=== PATIENT | male | born 1955 | race Caucasian/White ===

== ENCOUNTER 2017-09-13 11:23 | Day surgery (SDC) | END 2017-09-13 16:49 | disposition home or self-care (01) ==

== ENCOUNTER 2017-11-01 14:34 | Outpatient (CLI) | END 2017-11-01 15:45 | disposition home or self-care (01) ==

== ENCOUNTER 2018-12-29 05:45 | Day surgery (SDC) | payer OTHER ==
[2018-12-27 12:50] VITALS: BMI 25.1
[~2018-12-29] VITALS: Ht 170.2 cm; Wt 73.6 kg
[2018-12-29] VITALS (23 sets, daily range): BP systolic 111–142; BP diastolic 72–87; PULSE 52–158; RESP 11–23; Ht 170.2 cm; Wt 73.6 kg
[~2018-12-29 05:45] MED LIST: ATOR20TA38 PO; FLUT1BLS3 IH; [UNRECOGNIZED DRUG - OTHER]
[2018-12-29] MEDS ORDERED: BACITRACIN/POLYMYXIN 28.35 GM OINT TOP ONE (06:53)
[2018-12-29] MEDS ORDERED: BUPIVACAINE 0.5%/EPI (SDV) 10 ML INJ ONE (06:53)
[2018-12-29] MEDS ORDERED: BUPIVACAINE 0.5% (SDV) 30 ML INJ ONE (06:54)
[2018-12-29] MEDS ORDERED: ROCURONIUM 50 MG INJ ONE (07:00)
[2018-12-29] MEDS ORDERED: SEVOFLURANE 15 MIN ONE (07:00)
[2018-12-29] MEDS ORDERED: PROPOFOL 200 MG INJ ONE (07:00)
[2018-12-29] MEDS ORDERED: LIDOCAINE 2% (SDV) 5 ML INJ ONE (07:00)
[2018-12-29] MEDS ORDERED: MIDAZOLAM 1 MG/ML 2 ML INJ ONE (07:08)
[2018-12-29] MEDS ORDERED: FENTAnyl 50 MCG/ML VIAL ONE (07:08)
--- NOTE | 2018-12-29 07:22 | PREAC ---
Date/Time of Note Date/Time of Note DATE: 12/29/18 TIME: : Anesthesia Eval and Record Evaluation Time Pre-Procedure Interview DATE: 12/29/18 TIME: :19 Age 63 Sex male NPO: 8 hrs Preoperative diagnosis Bilateral hydrocele Planned procedure Bilateral hydrocelectomy Past Medical History Past Medical History: Includes Cardio: HTN Pulm: Smoking Hx, COPD Renal: CKD Infection(s): Hep C, Other (S/p Sovaldi, undetectable level) Surgery & Anesthesia Issues No known issue Meds Anticoagulation: No Beta Amaris within 24 hr: No Reason Beta Amaris not given: Pt. not on B-Amaris Reported Medications [onoro] No Conflict Check, 2 PUFFS DAILY 12/27/18 Atorvastatin Calcium* (Atorvastatin Calcium*) 20 Mg Tablet, 20 MG PO QHS, #30 TAB 12/27/18 Fluticasone/Umeclidin/Vilanter (Trelegy Ellipta 100-62.5-25) 1 Each Blst.w.dev, 1 EACH IH Q6 for SHORTNESS OF BREATH 11/01/17 Meds reviewed: Yes Allergies Coded Allergies: No Known Allergy (Unverified , 09/13/17) Allergies Reviewed: Yes Labs/Studies Labs Reviewed: Reviewed by anesthesiologist test: N/A Studies: ECG, CXR Pre-procedure Exam Last vitals Vital Signs Date Temp Pulse Resp B/P (MAP) Pulse Ox O2 O2 Flow FiO2 Time Delivery Rate 12/29/18 98.2 122 23 119/72 97 Room Air 06:42 (88) Airway: Adequate mouth opening, Adequate thyromental dist Mallampati: Mallampati I Teeth: Normal Lung: Normal Heart: Normal ASA Physical Status ASA physical status: 3 Emergency: None Planned Anesthetic General/MAC: ETT Pre-operative Attestations Prior to commencing anesthesia and surgery, the patient was re-evaluated, there was verification of: *The patient's identity *The results of appropriate recent lab work and preoperative vital signs *The above evaluation not changing prior to induction *Anesthetic plan, risk benefits, alternative and complications discussed with patient/family; questions answered; patient/family understands, accepts and wishes to proceed. ANKUSH LEON MD Dec 29, 2018 07:22
[2018-12-29] MEDS ORDERED: DEXAMETHASONE 4 MG/ML 5 ML INJ ONE (07:45)
[2018-12-29] MEDS ORDERED: ONDANSETRON 4 MG INJ ONE (07:45)
[2018-12-29] MEDS ORDERED: CEFTRIAXONE 1 GM/50 ML (PMX) 50 ML IVPB ONE (08:00)
[2018-12-29] MEDS ORDERED: HYDROmorphONE 2 MG/ML SYG ONE (08:11)
[2018-12-29] MEDS ORDERED: HYDROmorphONE 1 MG/5 ML IV SYRINGE IV PRN ×2 (08:30)
[2018-12-29] MEDS ORDERED: hydrALAzine 20 MG INJ IV PRN (08:30)
[2018-12-29] MEDS ORDERED: OXYCODONE/ACETAMINOPHEN (5/325) TAB PO PRN ×2 (08:30)
[2018-12-29] MEDS ORDERED: LABETALOL HCL 20MG INJ IV PRN (08:30)
[2018-12-29] MEDS ORDERED: FENTAnyl 50 MCG/ML VIAL IV PRN ×2 (08:30)
[2018-12-29] MEDS ORDERED: ONDANSETRON 4 MG INJ IV PRN (08:30)
[2018-12-29] MEDS ORDERED: METOCLOPRAMIDE 10 MG INJ IV PRN (08:30)
[2018-12-29] MEDS ORDERED: EPHEDrine SULFATE 50 MG/5 ML SYG IV PRN (08:30)
[2018-12-29] MEDS ORDERED: ALBUTEROL 0.083% (NEB) 2.5 MG/3 ML AMP HHN PRN (08:30)
--- NOTE | 2018-12-29 09:15 | PAC ---
Date/Time of Note Date/Time of Note DATE: 12/29/18 TIME: 09:15 Post-Anesthesia Notes Post-Anesthesia Note Last documented vital signs Vital Signs Date Temp Pulse Resp B/P (MAP) Pulse Ox O2 O2 Flow FiO2 Time Delivery Rate 12/29/18 98.2 122 23 119/72 97 Room Air 06:42 (88) Activity: WNL Respiratory function: WNL Cardiovascular function: WNL Mental status: Baseline Pain reasonably controlled: Yes Hydration appropriate: Yes Nausea/Vomiting absent: Yes ANKUSH LEON MD Dec 29, 2018 09:15
--- NOTE | 2018-12-29 09:15 | HPN ---
Date/Time of Note Date/Time of Note DATE: 12/29/18 TIME: 09:15 Interval H&P Admission Note Pt. seen H&P reviewed: No system changes BRENNEN RICHARD MD Dec 29, 2018 09:15
[2018-12-29] MEDS ORDERED: HYDROCODONE/APAP (5/325) TAB PO PRN (09:30)
--- NOTE | 2018-12-29 09:31 | OPR ---
Date/Time of Note Date/Time of Note DATE: 12/29/18 TIME: : Operative Report Procedure Date: Dec 29, 2018 Preoperative Diagnosis Bilateral hydroceles Postoperative Diagnosis Bilateral hydroceles and spermatoceles Operation/Procedure Performed Bilateral hydrocelectomy and excision of bilateral spermatoceles. 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 The patient was positioned in the supine position and the lower abdomen genital area and upper thighs were all prepped and draped in the usual sterile manner. Patient was given 1 g of ceftriaxone IV at the start of the procedure. A timeout was done and the patient was identified by his name, birthdate and the procedure. A vertical incision was made over the right side of the scrotum and deepened through the different layers of the scrotal wall then the scrotal content was delivered through the incision and the patient was found to have multiple large spermatoceles in addition to the hydrocele. The hydrocele was dr ained and then the spermatoceles were all drained and it had about 6 or 7 spermatoceles. All the hydrocele and the spermatocele sacs where excised. They wear all drained and their edges and bases were fulgurated. Good hemostasis was obtained. A 10 mm RAMÓN drain was inserted through a different stab wound. The wound was then closed using 3-0 Vicryl running interlocked sutures for the subcutaneous tissue and 3-0 Vicryl mattress sutures for the skin. The RAMÓN drain was secured with a suture of 3-0 Vicryl as well. Similar procedure was done on the left side except no RAMÓN drain was inserted at that side. And the spermatoceles and the hydrocele on the left side were smaller. The patient was given half percent Marcaine injection on both incisions for local analgesia. A sterile dressing was applied on both incisions first Telfa and then fluffs these were held in place with a scrotal support. Patient was discharged to the recovery room in a stable and satisfactory condition. He will come to the office in about 4-5 days to have the RAMÓN drain removed. BRENNEN RICHARD MD Dec 29, 2018 09:31
== END 2018-12-29 11:20 | disposition home or self-care (01) ==
LOC: SDS 05:45
PROVIDERS: ATTEND Urology
DX: N43.3 Hydrocele, unspecified (principal); N43.40 Spermatocele of epididymis, unspecified; J44.9 Chronic obstructive pulmonary disease, unspecified; I12.9 Hypertensive chronic kidney disease with stage 1 through stage 4 chronic kidney disease, or unspecified chronic kidney disease; N18.9 Chronic kidney disease, unspecified
CPT/HCPCS: 55041; J0696; J1100; J1170; J2250; J2405; J3010; Z7512; Z7610; 88302